=== PATIENT | male | born 1960 | race Caucasian/White ===

== ENCOUNTER → 2017-06-20 | Outpatient (REF) | LOC: ZLAB.WCH 12:28 | DX: Z01.89 Encounter for other specified special examinations (principal) | CPT/HCPCS: G0103 ==

== ENCOUNTER 2019-11-18 14:02 | Inpatient (IN) | payer BC ==
[~2019-11-18] VITALS: Ht 182.9 cm; Wt 60.4 kg
[2019-12-20] VITALS (12 sets, daily range): BP systolic 108–121; BP diastolic 58–76; PULSE 72–94; TEMP 97.5–100.8
[2019-12-20] MEDS ORDERED: PROBIOTIC FORMU1 CAP PO (09:26)
[2019-12-20] MEDS ORDERED: PRILOTC PO (09:26)
[2019-12-20] MEDS ORDERED: LEADER CLEARLAX PO (09:27)
--- NOTE | 2019-12-20 09:51 | NUR ---
Dr. Estrada is at the bedside and speaks with the patient. He is notified that the patient's last fluid intake was the ERAS gatorade, which he finished at 0815.
--- NOTE | 2019-12-20 09:52 | NUR ---
Patient is alert and oriented. Procedure is confirmed. He denies any questions and verbalizes understanding. Pre-op medications are given as ordered. PIV is started in the right hand with x1 attempt and no complications. A re-type is drawn and collected by lab. Breath sounds are clear bilaterally to auscultation. Clear S1S2 heart tones are heard with regular rate noted. His left pupil is more dilated and slightly misshapen compared to the right. He states this is from a previous eye injury and is the baseline for him. +2 radial pulses bilaterally. He denies pain, numbness, or tingling. Call light usage is taught and within reach.
--- NOTE | 2019-12-20 10:19 | NUR ---
Patient notifies staff that his father has olgilvies syndrome. Nursing staff notifies anesthesia provider, Sidney Jonas CRNA of this.
--- NOTE | 2019-12-20 10:36 | NUR ---
Patient to the OR with NOREEN Edwards. Daron taken to PACU.
--- NOTE | 2019-12-20 20:06 | NUR ---
Resting in bed. Assessment complete. Lungs clear. Heart sounds normal. Bowels active x4. Pulses strong throughout. No edema noted. IV right hand infusing without complications. Reports "need to pee." Ibarra to dependent drainage without any kinks-reddish urine. X5 lap sites to ABD with swiftset. CHRISTINA drain to bulb suction-reddish drainage. Denies needs at this time. Call light in reach. Respirations 12-16, easily arousable. Will closely monitor.
--- NOTE | 2019-12-20 23:54 | NUR ---
Patient stood up at side of bed. Tolerated well. Would like to sleep until 0200 and then possibly walk. Provided with schedule toradol. Pain 10 in ABD. Denies other needs at this time. Call light in reach.
--- NOTE | 2019-12-21 02:30 | NUR ---
Patient ambulating in hallways with standby assist. Tolerated well. Returned to bed. Call light in reach.
[2019-12-21 04:25] VITALS: BP 92/48; PULSE 68; TEMP 97.9
--- NOTE | 2019-12-21 06:27 | NUR ---
Patient ambulated in hallways during night. CHRISTINA drain to bulb suction with minimal drainage. Ibarra to dependent drainge without kinks or loops. Reports minimal ABD pain this AM. Otherwise uneventful night. Resting in bed this AM. Call light in reach.
[2019-12-21 06:55] LABS: HEMATOCRIT 36.8 % (42.0-52.0); HEMOGLOBIN 12.3 g/dl (13.5-18.0)
[2019-12-21 07:12] LABS: CREATININE, serum 0.85 (0.66-1.25)
[2019-12-21 07:13] LABS: CALCIUM 8.6 mg/dL (8.4-10.2); POTASSIUM 4.8 mmol/L (3.4-5.0)
--- NOTE | 2019-12-21 07:25 | NUR ---
Report given to NOREEN Saenz
[2019-12-21 08:43] VITALS: BP 87/53; PULSE 72; TEMP 98
--- NOTE | 2019-12-21 09:47 | NUR ---
Lift Supervisor met with patient to discuss discharge planning. Patient lives in [place] with his Myrna (ph#[phone]) and sees Dr. York for primary care. Patient obtains medications from [facility] with no difficulties. Patient does not have Advance Directives. Patient denies DME usage and is independent with ADLS. Patient plans to return home upon discharge. No needs identified at this time.
--- NOTE | 2019-12-21 10:45 | NUR ---
Patient alert and oriented, answers questions appropriately. See assessment. Abdomen soft, non tender, non distended. Bowel sounds active x4 quads. No flatus. Lap sites with edges well approximated, no redness or drainage noted. CHRISTINA drain to LLQ with scant amount of serosanguinous drainage noted. Ibarra catheter in place, patent, draining clear red urine. ERAS protocol and post op exercises reviewed with patient. No c/o at this time.
[2019-12-21 10:50] VITALS: BP 90/56; PULSE 67; TEMP 98.3
--- NOTE | 2019-12-21 11:56 | NUR ---
First visit from the bun icer. No needs right now.
--- NOTE | 2019-12-21 12:17 | NUR ---
Dr Estrada here to see patient.
--- NOTE | 2019-12-21 13:42 | NUR ---
CHRISTINA drain to LLQ removed with no difficulties.
--- NOTE | 2019-12-21 16:46 | NUR ---
Discharge instructions reviewed with patient and spouse, verbalized understanding. Discharged via wheelchair to auto/home with spouse at 1645.
== END 2019-12-21 16:45 | disposition home or self-care (01) | DRG 708 ==
LOC: INPTSU 12-20 09:07 → SURG 12-20 11:00
PROVIDERS: ADMIT Urology
PROC: 0VT04ZZ Resection of Prostate, Percutaneous Endoscopic Approach (ICD-10-PCS; 2019-12-20)
PROC: 0VT34ZZ Resection of Bilateral Seminal Vesicles, Percutaneous Endoscopic Approach (ICD-10-PCS; 2019-12-20)
PROC: 8E0W4CZ Robotic Assisted Procedure of Trunk Region, Percutaneous Endoscopic Approach (ICD-10-PCS; 2019-12-20)
PROC: 07TC4ZZ Resection of Pelvis Lymphatic, Percutaneous Endoscopic Approach (ICD-10-PCS; principal; 2019-12-20 11:00)
DX: C61 Malignant neoplasm of prostate (principal); K21.9 Gastro-esophageal reflux disease without esophagitis; E78.5 Hyperlipidemia, unspecified
CPT/HCPCS: A4314; A9284; J0690; J1100; J1170; J1885; J2175; J2310; J2405; J2550; J2704; J3010; J7120